=== PATIENT | male | born 1945 | race Caucasian/White ===

== ENCOUNTER 2020-01-17 16:19 | Inpatient (IN) | payer MEDICARE ==
[~2020-01-17] VITALS: Ht 190.5 cm; Wt 92.5 kg
[2020-01-17 16:54] LABS: BASOPHILS % (AUTO) 0.5 % (0.0-2.0); EOSINOPHILS % (AUTO) 3.3 % (0.0-6.0); HEMATOCRIT 44 % (39-51); HEMOGLOBIN 14.9 g/dL (13.5-17.5); LYMPHOCYTES # (AUTO) 0.5 /CMM (0.8-4.8); LYMPHOCYTES % (AUTO) 18.3 % (20.0-44.0); MEAN CORPUSCULAR HGB CONC 34 g/dl (31.0-36.0); MEAN CORPUSCULAR VOLUME 90 fL (80-96); MONOCYTES # (AUTO) 0.4 /CMM (0.1-1.30); MONOCYTES % (AUTO) 14.3 % (2.0-12.0); NEUTROPHILS # (AUTO) 1.7 /CMM (1.8-8.9); NEUTROPHILS % (AUTO) 63.6 % (43.0-81.0); PLATELET COUNT (AUTO) 116 /CMM (150-450); RED BLOOD CELL COUNT(AUTO) 4.95 MIL/uL (4.5-6.0); WHITE BLOOD COUNT (AUTO) 2.7 K/uL (4.3-11.0)
[2020-01-17 17:04] LABS: CALCIUM, SERUM 8.3 mg/dL (8.5-10.1); CREATININE 0.9 mg/dL (0.6-1.3); POTASSIUM 3.6 mmol/L (3.5-5.1)
[2020-01-17] MEDS ORDERED: AZAT50TA18 PO (17:30)
[2020-01-17] MEDS ORDERED: VITA400C19 PO (17:30)
[2020-01-17] MEDS ORDERED: ASCO-352 PO (17:30)
[2020-01-17] MEDS ORDERED: MULT-659 PO (17:30)
[2020-01-17] MEDS ORDERED: IVIG IV (17:31)
[2020-01-17 17:49] LABS: EOSINOPHILS % (MANUAL) 2 % (0-4); LYMPHOCYTES % (MANUAL) 21 % (16-48); MONOCYTES % (MANUAL) 16 % (0-11.0); NEUTROPHILS % (MANUAL) 61 (42-76)
--- NOTE | 2020-01-17 18:00 | NUR ---
CALLED [facility] DR. ROBLES FOR [facility]TH[facility] CONSULT.
[2020-01-17] MEDS ORDERED: MAGNESIUM HYDROXIDE 30 ML UDC PO PRN (19:00)
[2020-01-17] MEDS ORDERED: Z GUARD REMEDY 2 OZ OINT TP PRN (19:00)
[2020-01-17] MEDS ORDERED: ONDANSETRON HCL/PF 4 MG/2 ML VIAL IVP PRN (19:00)
[2020-01-17] MEDS ORDERED: ACETAMINOPHEN 325 MG TABLET PO PRN (19:00)
[2020-01-17] MEDS ORDERED: MAG HYDROX/AL HYDROX/SIMETH 30 ML UDC PO PRN (19:00)
--- NOTE | 2020-01-17 19:17 | NUR ---
LINE STARTED ON R WRIST G20,
--- NOTE | 2020-01-17 19:37 | NUR ---
PATIENT IS AAOX4. NO SOB. BREATHING EVENLY AND UNLABORED ON ROOM AIR. PATIENT C/O OF PAIN WHEN MOVING ON THE RIGHT SIDE (MAINLY HIP). OTHERWISE, PATIENT DENIES PAIN WHEN NOT MOVING. CONNECTED TO MONITOR. AWAITING ADMISSION.
--- NOTE | 2020-01-17 20:25 | NUR ---
CALLED FOR REPORT, STAFF STATES THAT "PATIENT HAS NOT BEEN ASSIGNED TO A NURSE YET".
--- NOTE | 2020-01-17 20:35 | NUR ---
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 X-RAY OF LEFT 4TH FINGER-NON DISPLACED INTRAARTICULAR IMPACTION FRACTURE OF THE BASE OF THE MIDDLE PHAL[place]X.HE WAS SEEN BY IN ER AND MED RECON DONE, HE WILL BE REFERRED TO ([facility]TH[facility]) HE MIGHT BE SEEN TOMORROW PER ENDORSEMENT. Addendum: 01/18/20 at 0253 by AIDAN NICKERSON RN WRONG ENTRY OF TIME: SUPPOSE TO BE 2040 NOT 2034
--- NOTE | 2020-01-17 20:41 | NUR ---
REPORT GIVEN TO ALFREDA ROMO FOR FRANCISCO.
--- NOTE | 2020-01-17 20:55 | NUR ---
RN NOTES: PATIENT ARRIVED IN IN-3 AT 2049,DX;HIP FRACTURE S/P FALL (HE SAID HE TRIP ON THE [place]) HE SAID HE DID NOT HIT HIS HEAD, NO NAUSEA OR VOMITING, HE DID NOT HAVE LOSS OF CONSCIOUSNESS, HE DIDNT FEEL DIZZY OR HAVING BLURRED VISION PRIOR TO THE FALL. HE WAS ACCOMPANIED BY 2 ER STAFF, HE WAS BREATHING SPONTANEOUSLY IN RA, NO SOB OR RESPIRATORY DISTRESS NOTED, PATIENT IS A/0 3-4, COOPERATIVE AND CONVERSANT, ORIENTED TO UNIT AND STAFF, EXPLAINED TO HIM WE NEED TO DO SKIN ASSESSMENT, HE REFUSED TO BE TURNED AND REPOSITION DUE TO PAIN, HE DONT EVEN WANT TO REMOVE THE BED SHEET FROM THE ER, OFFERED ICE PACK HE SAID HE DONT WANT, HE SAID HE HAS SEVERE PAIN UPON MOVEMENT, BUT IF HE STAY IN ONE POSITION HE IS OK NO PAIN, BODY ASSESSMENT DONE: 1)RIGHT HAND ABRASION 2)RIGHT KNEE ABRASION 3) RIGHT HIP IS SWELLING BUT NO SKIN DISCOLORATION NOTED AT THIS TIME 4) LEFT 4TH FINGER- SWELLING AND SLIGHT REDNESS , HE HAD BM TODAY HE ONLY REQUEST TO USE URINAL, HE WANTS TO BE FC BUT NO INTUBATION, HE LIVES ALONE AND HE HAS CLOSE FRIEND AROUND HIM, HE IS SELF EMPLOYED. -FALL, SAFETY AND ASPIRATION PRECAUTION OBSERVED.KEPT CALL LIGHT WITHIN EASY REACH, ON CLOSE WATCH, HIGH RISK FOR FALL.
[2020-01-17 21:00] VITALS: BP 146/74
--- NOTE | 2020-01-17 22:00 | NUR ---
RN NOTES; OFFERED ICE PACK AND PAIN MEDICATION WHEN HE ARRIVED IN [facility] HE SAID HE WILL ASK FOR IT, THEN RN OFFERED AGAIN AT 2202 HE AGREED TO TAKE IT BECAUSE HE WONT EVEN ALLOWED TO BE REPOSITION TO REMOVE THE SHEET. HE ONLY WANT THE TABLET, NORCO GIVEN, NON PHARMACOLOGIC INTERVENTION RENDERED, WARM BLANKET AND POSITIONING, ALL CALLS AND NEEDS ATTENDED.
[2020-01-17] MEDS: HYDROCODONE/APAP 5/325MG 1 EACH TABLET PO PRN (22:02)
[2020-01-17] MEDS: IV NS 0.9% 1,000 ML IV PRN (22:02)
--- NOTE | 2020-01-18 03:01 | NUR ---
RN NOTES: ABLE TO SLEEP AND REST, KEPT ON CLOSE VISUAL CHECK.
[2020-01-18] MEDS: HYDROCODONE/APAP 5/325MG 1 EACH TABLET PO PRN (03:10)
--- NOTE | 2020-01-18 03:11 | NUR ---
RN NOTES: RN DID ROUNDS AND HE WAKE UP AND SAID HIS TRYING TO MOVE AND HE JUST PEE AWHILE AGO HE FELT PAIN 04/10, I OFFERED TO HIM HIS INJECTION FOR PAIN BUT HE SAID "I PREFER THE TABLET ONLY", NORCO GIVEN PER REQUEST AND WARM BLANKET GIVEN. KEPT CALL LIGHT WITHIN EASY REACH.
--- NOTE | 2020-01-18 06:47 | NUR ---
RN NOTES: ON NPO, CONTINENT BOTH BOWEL AND BLADDER, URINE OUT YWP=[id number], NO BM, IV CANNULA ON THE RIGHT HAND G#20 INTACT WITH IVF ON NS AT 75 ML/HR ONGOING, FOR LABS TODAY, FOR ORTHO REFERRAL, ENDORSED FOR CONTINUITY OF CARE.STILL WITH INTERMITTENT [PAIN ON THE RIGHT HIP.
[2020-01-18 08:00] VITALS: BP 143/93
--- NOTE | 2020-01-18 08:40 | NUR ---
RN Notes: Received pt. awake in bed, with an IV of NS 1L at 75 cc/hr dripping well. Pt. was on the phone, responsive to staffs, no pain reported at this time, pt on NPO. Needs attended and safety precautions in place. Bed locked and set to lowest position with side rails x 2 up. Call light within reach. Will continue to monitor.
[2020-01-18] MEDS: ASCORBIC ACID 500 MG TABLET PO SCH ×2 (09:00→09:33)
[2020-01-18] MEDS: AZATHIOPRINE 50 MG TABLET PO SCH ×3 (09:00→10:19)
[2020-01-18] MEDS: MULTIVIT W/MINERALS 1 TAB TABLET PO SCH ×2 (09:00→09:33)
[2020-01-18] MEDS: VITAMIN E 400 UNIT CAPSULE PO SCH ×2 (09:00→09:33)
[2020-01-18 09:08] LABS: BASOPHILS % (AUTO) 0.2 % (0.0-2.0); EOSINOPHILS % (AUTO) 0.9 % (0.0-6.0); HEMATOCRIT 45 % (39-51); HEMOGLOBIN 15.3 g/dL (13.5-17.5); LYMPHOCYTES # (AUTO) 0.3 /CMM (0.8-4.8); LYMPHOCYTES % (AUTO) 7.6 % (20.0-44.0); MEAN CORPUSCULAR HGB CONC 34 g/dl (31.0-36.0); MEAN CORPUSCULAR VOLUME 89 fL (80-96); MONOCYTES # (AUTO) 0.4 /CMM (0.1-1.30); MONOCYTES % (AUTO) 9.4 % (2.0-12.0); NEUTROPHILS # (AUTO) 3.3 /CMM (1.8-8.9); NEUTROPHILS % (AUTO) 81.9 % (43.0-81.0); PLATELET COUNT (AUTO) 120 /CMM (150-450); RED BLOOD CELL COUNT(AUTO) 5.07 MIL/uL (4.5-6.0); WHITE BLOOD COUNT (AUTO) 4.1 K/uL (4.3-11.0)
[2020-01-18 09:13] LABS: CALCIUM, SERUM 8.3 mg/dL (8.5-10.1); CREATININE 0.8 mg/dL (0.6-1.3); MAGNESIUM 2.1 mg/dL (1.8-2.4); PHOSPHORUS 3.1 mg/dL (2.5-4.9); POTASSIUM 3.7 mmol/L (3.5-5.1)
[2020-01-18 09:22] LABS: THYROID STIMULATING HORMONE 4.853 uIU/mL (0.358-3.74)
--- NOTE | 2020-01-18 09:32 | NUR ---
Clarified with Ascecnion Chen (MANAGER NEONATAL), pt. on NPO except meds.
[2020-01-18 11:41] VITALS: BP 140/73
--- NOTE | 2020-01-18 12:08 | NUR ---
Notified Ascencion April that BP 143/93 and NM 134 as of 0800 and the latest BP 140/73 and NM 140. Pt. is on pain 07/11 and said he doesn't want prn med for pain and will wait for the ortho doctor. No new order.
--- NOTE | 2020-01-18 13:59 | NUR ---
Ascencion Chen gave an order to pt. OK to eat today and NPO after midnight for surgery tomorrow.
[2020-01-18 16:00] VITALS: BP 132/76
--- NOTE | 2020-01-18 18:56 | NUR ---
RN Closing Notes: Pt. is awake in bed, with ongoing IV of NS 1L at 75 ml/hr. Pt. is waiting for the orthopedic doctor. Pt. refused to eat dinner. No distress noted and will endorse to the incoming nurse for the continuity of care.
--- NOTE | 2020-01-18 19:35 | NUR ---
MS RN OPENING NOTES PATIENT AWAKE IN BED. A/OX4. ON RA. NO S/S OF ACUTE RESPIRATORY DISTRESS AND NO C/O PAIN AT THIS TIME. IV PRESENT ON RIGHT WRIST, SIZE 20, INTACT & PATENT, WITH NS RUNNING AT 75 ML/HR. EXPLAINED TO PATIENT THAT HE WILL BE NPO AFTER MIDNIGHT R/T SURGERY TOMORROW MORNING; VERBALIZED UNDERSTANDING. SAFETY MEASURES IN PLACE. BED LOCKED, SIDE RAILS X2, CALL LIGHT WITHIN REACH. WILL CONTINUE TO MONITOR.
[2020-01-18 20:00] VITALS: BP 150/82
[2020-01-18] MEDS: IV NS 0.9% 1,000 ML IV PRN (20:41)
[2020-01-18] MEDS: MORPHINE SULFATE INJ 2 MG/ML DISP.SYRIN IV PRN (21:05)
[2020-01-19 06:44] LABS: BASOPHILS # (AUTO) 0.1 /CMM (0.0-0.2); BASOPHILS % (AUTO) 1.8 % (0.0-2.0); EOSINOPHILS % (AUTO) 4.3 % (0.0-6.0); HEMATOCRIT 46 % (39-51); HEMOGLOBIN 15.3 g/dL (13.5-17.5); LYMPHOCYTES # (AUTO) 0.4 /CMM (0.8-4.8); LYMPHOCYTES % (AUTO) 8.4 % (20.0-44.0); MEAN CORPUSCULAR HGB CONC 34 g/dl (31.0-36.0); MEAN CORPUSCULAR VOLUME 89 fL (80-96); MONOCYTES # (AUTO) 0.5 /CMM (0.1-1.30); MONOCYTES % (AUTO) 11.1 % (2.0-12.0); NEUTROPHILS # (AUTO) 3.3 /CMM (1.8-8.9); NEUTROPHILS % (AUTO) 74.4 % (43.0-81.0); PLATELET COUNT (AUTO) 118 /CMM (150-450); RED BLOOD CELL COUNT(AUTO) 5.14 MIL/uL (4.5-6.0); WHITE BLOOD COUNT (AUTO) 4.4 K/uL (4.3-11.0)
[2020-01-19 07:10] LABS: CALCIUM, SERUM 8.4 mg/dL (8.5-10.1); CREATININE 0.9 mg/dL (0.6-1.3); POTASSIUM 3.4 mmol/L (3.5-5.1)
--- NOTE | 2020-01-19 07:20 | NUR ---
MS RN CLOSING NOTES PATIENT AWAKE IN BED. A/OX4. ON RA. NO S/S OF ACUTE RESPIRATORY DISTRESS AND NO C/O PAIN AT THIS TIME. IV PRESENT ON RIGHT WRIST, SIZE 20, INTACT & PATENT, WITH NS RUNNING AT 75 ML/HR. PATIENT HAS BEEN NPO SINCE MIDNIGHT. CONSENTS FOR SURGERY SIGNED AND PLACED IN CHART. SAFETY MEASURES IN PLACE. BED LOCKED, SIDE RAILS X2, CALL LIGHT WITHIN REACH. WILL ENDORSE TO DAY SHIFT NURSE PLAN OF CARE.
--- NOTE | 2020-01-19 07:35 | NUR ---
RN NOTES RECEIVED PATIENT AWAKE IN BED. A/OX4. ON RA. NO S/S OF ACUTE RESPIRATORY DISTRESS AND NO C/O PAIN AT THIS TIME. IV PRESENT ON RIGHT WRIST, SIZE 20, INTACT & PATENT, WITH NS RUNNING AT 75 ML/HR. PATIENT HAS BEEN NPO SINCE MIDNIGHT. CONSENTS FOR SURGERY SIGNED AND PLACED IN CHART, SCHEDULED FOR SURGERY @09:00. SAFETY MEASURES IN PLACE. BED LOCKED, SIDE RAILS X2, CALL LIGHT WITHIN REACH. WILL CONTINUE TO MONITOR.
[2020-01-19 08:00] VITALS: BP 153/78
[2020-01-19] MEDS ORDERED: ANESTHESIA TRAY IN PYXIS 1 EA TRAY MC ONE (08:14)
[2020-01-19] MEDS ORDERED: BACITRACIN 50000 UNITS/VIAL ONE (08:15)
[2020-01-19] MEDS ORDERED: BUPIVACAINE 0.5 % PF 150 MG/30 ML VIAL ONE (08:15)
[2020-01-19] MEDS ORDERED: POTASSIUM CL. PREMIX PERIPHER. 50 ML IV SCH (08:30)
--- NOTE | 2020-01-19 08:45 | NUR ---
RN NOTES PATIENT WAS PICKED UP VIA HOSPITAL BED FOR SURGERY WITH DR. ROBLES, NO SIGNS OF DISTRESS, CONSENT SIGNED, ENDORSE TO DEMETRIUS HANKS FOR FRANCISCO.
--- NOTE | 2020-01-19 08:50 | NUR ---
M/S RN NOTES REPORT ENDORSED BY JAVED ROMO. PT IN SURGERY AT THIS TIME. ELLIS ON THE FLOOR, PER PROVIDER TO ADJUST POTASSIUM SUPPLEMENTS TIME ONCE RETURN ON THE FLOOR FOR ADMINISTRATION. NOTED AND CARRIED OUT
[2020-01-19] MEDS: ASCORBIC ACID 500 MG TABLET PO SCH (09:00)
[2020-01-19] MEDS: MULTIVIT W/MINERALS 1 TAB TABLET PO SCH (09:00)
[2020-01-19] MEDS: AZATHIOPRINE 50 MG TABLET PO SCH (09:00)
[2020-01-19] MEDS: VITAMIN E 400 UNIT CAPSULE PO SCH (09:00)
[2020-01-19] MEDS ORDERED: MIDAZOLAM HCL 2 MG/2ML VIAL ONE (09:44)
[2020-01-19] MEDS ORDERED: FENTANYL PF 100MCG/2ML AMPUL ONE (09:44)
[2020-01-19] MEDS ORDERED: TRANEXAMIC ACID 3,000 MG in SODIUM CHLORIDE IRRIG SOLUTION 70 ML IR ONE (10:00)
[2020-01-19] MEDS ORDERED: PROPOFOL 100 ML ONE (10:26)
[2020-01-19] MEDS ORDERED: ALBUMIN 5% 250 ML IV ONE (11:06)
--- NOTE | 2020-01-19 13:00 | NUR ---
M/S RN NOTES PT RECEIVED FROM SURGERY S/P RIGHT HIP YASMIN ARTHROPLASTY. A/OX4, RESPONSIVE TO ALL STIMULI. AND SOFT AND NON DISTENDED WITH ACTIVE BOWEL SOUNDS. DENIES PAIN AT THIS TIME. IV SITE AT RIGHT WRIST #20 PATENT IN FLUSHING, WITH NS AT 75 ML/ HR. PLACED ON REGULAR DIET BY THE PROVIDER. VS 153/85, 89, 18, 98 F, 94% ROOM AIR. WITH ORDER TO CHECK O2 EVERY HOUR. BED IN LOW LOCKED POSITION, SR X2 UP FOR SAFETY. SCD COMPRESSION IN PLACE. CALL LIGHT WITHIN REACH. WILL CONTINUE TO MONITOR CARE.
--- NOTE | 2020-01-19 15:15 | NUR ---
M/S RN NOTES VERIFIED WITH SVEN ELLIS REGARDING KCL 4 BAGS IV REPLACEMENT FOR 3.4 LEVEL RESULT TODAY. NEW ORDER OBTAINED OF K-DUR 20 MEQ 1 TAB NOW FOR REPLACEMENT. ORDER READ BACK BY GIANNA CHARGE NURSE RN, NOTED AND CARRIED OUT.TO ADMINISTER ORDERED
[2020-01-19 16:00] VITALS: BP 158/78
[2020-01-19] MEDS ORDERED: ZOLPIDEM TARTRATE 10 MG TABLET PO PRN (16:00)
[2020-01-19] MEDS ORDERED: POTASSIUM CHLORIDE 20 MEQ TAB.PRT.SR PO ONE (17:00)
[2020-01-19] MEDS: ANCEF 1 GM/50 ML D5W IV SCH ×2 (17:36)
--- NOTE | 2020-01-19 18:00 | NUR ---
M/S RN NOTES PT TAKING MELATONIN LIQUID 10 ML QHS PRN FOR INSOMNIA HOME MEDS, ADDED PER SVEN ELLIS AND APPROVED BY DR. ROBLES. ORDER PLACED IN FOR USE. PT NOTIFIED
[2020-01-19] MEDS: MORPHINE SULFATE INJ 2 MG/ML DISP.SYRIN IV PRN (18:15)
[2020-01-19] MEDS: IV NS 0.9% 1,000 ML IV PRN (18:28)
--- NOTE | 2020-01-19 19:50 | NUR ---
MS RN OPENING NOTES PATIENT AWAKE IN BED. A/OX4. ON RA. NO S/S OF ACUTE RESPIRATORY DISTRESS AND NO C/O PAIN AT THIS TIME. IV PRESENT ON RIGHT WRIST, SIZE 20, INTACT & PATENT, WITH NS RUNNING AT 75 ML/HR. SURGICAL DRESSING ON RIGHT HIP DRY AND INTACT. SCD PRESENT ON LEFT CALF. SAFETY MEASURES IN PLACE. BED LOCKED, SIDE RAILS X2, CALL LIGHT WITHIN REACH. WILL CONTINUE TO MONITOR.
[2020-01-19 20:06] VITALS: BP 154/93
[2020-01-19 20:15] VITALS: BP 154/93
--- NOTE | 2020-01-19 20:20 | NUR ---
M/S RN CLOSING NOTES PT A/OX4, RESPIRATION NOT IN ACUTE RESPIRATORY DISTRESS, ROOM AIR SATURATION 90-96%. ABD SOFT AND NON DISTENDED WITH ACTIVE BOWEL SOUNDS, FC INTACT WITH YELLOW OUTPUT, PT COMPLAIN OF DISCOMFORT AT PENILE AREA AND AWARE OF THE SIDE EFFECT OF FC, STATED TOLERABLE. PAIN MEDICATION PROVIDED MORPHINE EFFECTIVE, SKIN WARM TO TOUCH AND DRY. IV SITE AT RIGHT HAND PATENT IN FLUSHING, NO S/SX OF INFILTRATION RUNNING NS AT 75 ML/HR. ALL CONCERNS ATTENDED. BED IN LOW LOCKED POSITION, SR X2 UP FOR SAFETY, SCD ON AND TOLERATING WELL. CALL LIGHT WITHIN REACH. ENDORSED CARE TO NEXT PT
[2020-01-19] MEDS: MELATONIN PO SCH (22:48)
--- NOTE | 2020-01-19 23:20 | NUR ---
MS RN NOTES PATIENT C/O OF BURNING SENSATION WHEN URINATING THROUGH ROBERSON CATHETER. ROBERSON CATH BALLOON AND TUBING ASSESSED AND REPOSITIONED. PATIENT CONTINUED C/O PAIN. NOTIFIED RECREATION CENTER DIRECTOR LUPE MONSIVAIS. RECEIVED ORDER TO REMOVE ROBERSON CATHETER. ROBERSON REMOVED AT 5208.
--- NOTE | 2020-01-19 23:35 | NUR ---
MS RN NOTES PATIENT'S TEMP 100.1. GAVE PRN TYLENOL 650 MG PO. WILL CONTINUE TO MONITOR.
[2020-01-20] MEDS: ANCEF 1 GM/50 ML D5W IV SCH ×4 (01:07→09:56)
[2020-01-20 01:40] VITALS: BP 137/81
[2020-01-20] MEDS: MORPHINE SULFATE INJ 2 MG/ML DISP.SYRIN IV PRN ×2 (01:40→21:04)
--- NOTE | 2020-01-20 01:40 | NUR ---
MS RN NOTES PATIENT C/O OF RIGHT HIP PAIN RATED 10/10. PER PATIENT'S REQUEST ADMINISTERED PRN MORPHINE 2MG VIA IV. VITAL SIGNS - BP: 137/81 HR:86 RR:18 SPO2: 95. CALL LIGHT WITHIN REACH. WILL CONTINUE TO MONITOR.
--- NOTE | 2020-01-20 01:45 | NUR ---
MS RN NOTES PATIENT'S TEMP 98.4.
--- NOTE | 2020-01-20 07:30 | NUR ---
MS/RN Opening Note Received Patient OA X 4, confusing able to responds all stimuli. No c/o pain or any discomfort at this time, skin is warm to touch, kept clean/dry, intact IV site and running NS at 75 ml. Respiratory even and unlabored with room air. Keep remain lower position of the bed with locked wheel chair for safety. Call light within reach, will continue to monitor.
--- NOTE | 2020-01-20 07:33 | NUR ---
MS RN CLOSING NOTES PATIENT AWAKE IN BED. A/OX4. ON RA. NO S/S OF ACUTE RESPIRATORY DISTRESS AND NO C/O PAIN AT THIS TIME. IV PRESENT ON RIGHT WRIST, SIZE 20, INTACT & PATENT, WITH NS RUNNING AT 75 ML/HR. SURGICAL DRESSING ON RIGHT HIP DRY AND INTACT. SCD PRESENT ON LEFT CALF. SAFETY MEASURES IN PLACE. BED LOCKED, SIDE RAILS X2, CALL LIGHT WITHIN REACH. WILL ENDORSE TO DAY SHIFT NURSE PLAN OF CARE. .
[2020-01-20 07:34] LABS: BASOPHILS % (AUTO) 0.2 % (0.0-2.0); EOSINOPHILS % (AUTO) 1.6 % (0.0-6.0); HEMATOCRIT 43 % (39-51); HEMOGLOBIN 14.6 g/dL (13.5-17.5); LYMPHOCYTES # (AUTO) 0.3 /CMM (0.8-4.8); LYMPHOCYTES % (AUTO) 4.6 % (20.0-44.0); MEAN CORPUSCULAR HGB CONC 34 g/dl (31.0-36.0); MEAN CORPUSCULAR VOLUME 88 fL (80-96); MONOCYTES # (AUTO) 0.6 /CMM (0.1-1.30); MONOCYTES % (AUTO) 10.3 % (2.0-12.0); NEUTROPHILS % (AUTO) 83.3 % (43.0-81.0); PLATELET COUNT (AUTO) 107 /CMM (150-450); RED BLOOD CELL COUNT(AUTO) 4.86 MIL/uL (4.5-6.0)
[2020-01-20 07:57] LABS: BILIRUBIN,TOTAL 0.7 mg/dL (0.2-1.0); CALCIUM, SERUM 8.2 mg/dL (8.5-10.1); CREATININE 0.8 mg/dL (0.6-1.3); PHOSPHORUS 2.9 mg/dL (2.5-4.9); POTASSIUM 3.4 mmol/L (3.5-5.1); TOTAL PROTEIN, SERUM 7.4 g/dL (6.4-8.2)
[2020-01-20 08:00] VITALS: BP 147/94
[2020-01-20] MEDS: VITAMIN E 400 UNIT CAPSULE PO SCH (09:48)
[2020-01-20] MEDS: MULTIVIT W/MINERALS 1 TAB TABLET PO SCH (09:48)
[2020-01-20] MEDS: ASCORBIC ACID 500 MG TABLET PO SCH (09:49)
[2020-01-20] MEDS: ENOXAPARIN SODIUM 40 MG/0.4 ML DISP.SYRIN SQ SCH (09:52)
[2020-01-20] MEDS: HYDROCODONE/APAP 5/325MG 1 EACH TABLET PO PRN (09:56)
[2020-01-20] MEDS ORDERED: POTASSIUM CHLORIDE 20 MEQ TAB.PRT.SR PO SCH (10:00)
[2020-01-20] MEDS: AZATHIOPRINE 50 MG TABLET PO SCH (10:14)
[2020-01-20 16:00] VITALS: BP 157/85
--- NOTE | 2020-01-20 18:30 | NUR ---
MS/RN Closing Note Patient in bed, does no c/o pain or any discomfort. skin is warm to touch, kept clean/dry, intact IV site. Respiratory even and unlabored with room air. Kept lower position of the bed with locked wheel and elevated head of bed. Call light within reach, will endorse night clerk auditor.
--- NOTE | 2020-01-20 19:59 | NUR ---
MS RN CLOSING NOTES PT REMAINS IN BED, AWAKE, A/O X4. PT TOLERATING RA, WITH NO ACUTE RESPIRATORY DISTRESS NOTED. PT DENIES ANY PAIN OR DISCOMFORT AT THIS TIME.IV ACCESS INTACT AND PATENT, G20, NO INFILTRATION NOTED. PT KEPT COMFORTABLE IN BED. SAFETY MEASURES IN PLACE. ALL NEEDS AND CARE ATTENDED. CALL LIGHT KEPT WITHIN REACH. PT'S BED IN LOWEST, LOCKED POSITION WITH SRX3. WILL CONTINUE TO MONITOR ACCORDINGLY. Addendum: 01/21/20 at 0020 [place] [address]/20/20 PT REMAINS IN BED, AWAKE, A/O X4. PT TOLERATING RA, WITH NO ACUTE RESPIRATORY DISTRESS NOTED. PT DENIES ANY PAIN OR DISCOMFORT AT THIS TIME. IVF NS AT TKO RAC G20, INTACT AND NO INFILTRATION NOTED. PT KEPT COMFORTABLE IN BED. ALL NEEDS AND CARE ATTENDED. CALL LIGHT KEPT WITHIN REACH. PT'S BED IN LOWEST, LOCKED POSITION WITH SRX3. WILL ENDORSE TO INCOMING NIGHT NURSE FOR FRANCISCO.
[2020-01-20 20:00] VITALS: BP 120/75
[2020-01-20 20:56] VITALS: BP 120/75
[2020-01-20] MEDS: MELATONIN PO SCH (22:29)
--- NOTE | 2020-01-20 23:50 | NUR ---
RN NOTES ROBERSON CATHETER HAS BEEN D/C'D ON 01/19/20 AT 2320 PER NURSES' PREVIOUS REPORT.
--- NOTE | 2020-01-21 06:50 | NUR ---
RN NOTES ALL NEEDS ATTENDED AND MET, ABLE TO REST AND SLEPT AT INTERVALS, SAFETY MEASURES IN PLACE, WILL ENDORSE TO AM NURSE FOR CONTINUITY ON CARE.
--- NOTE | 2020-01-21 07:33 | NUR ---
MS RN OPENING NOTE PATIENT IN BED RESTING COMFORTABLY. PATIENT IN NO ACUTE DISTRESS. NO SOB NOTED. PATIENT BREATHING IS EVEN AND UNLABORED. PATIENT IN NO PAIN AT THIS TIME. NO FACIAL GRIMACING NOTED. PATIENT BED ALARM IS ON. SAFETY PRECAUTIONS IN PLACE. PATIENT BED IS LOCKED AND IN LOWEST POSITION. CALL LIGHT WITHIN REACH. WILL CONTINUE TO MONITOR.
[2020-01-21 08:00] VITALS: BP 124/68
--- NOTE | 2020-01-21 08:19 | NUR ---
MS RN NOTE DR. BAKER SEEN AND EVALUATED PATIENT. SPOKE WITH DR. BAKER , PER MD ORDER FOR AMBIEN 5MG AT NIGHT BEFORE SLEEP PRN.
[2020-01-21] MEDS ORDERED: ZOLPIDEM TARTRATE 5 MG TABLET PO PRN (08:30)
[2020-01-21 08:40] LABS: CALCIUM, SERUM 8.3 mg/dL (8.5-10.1); CREATININE 0.8 mg/dL (0.6-1.3); POTASSIUM 3.5 mmol/L (3.5-5.1)
[2020-01-21] MEDS: VITAMIN E 400 UNIT CAPSULE PO SCH (08:46)
[2020-01-21] MEDS: AZATHIOPRINE 50 MG TABLET PO SCH (08:47)
[2020-01-21] MEDS: MULTIVIT W/MINERALS 1 TAB TABLET PO SCH (08:47)
[2020-01-21] MEDS: ASCORBIC ACID 500 MG TABLET PO SCH (08:47)
[2020-01-21] MEDS: ENOXAPARIN SODIUM 40 MG/0.4 ML DISP.SYRIN SQ SCH (08:48)
[2020-01-21] MEDS: POTASSIUM CHLORIDE 20 MEQ TAB.PRT.SR PO SCH ×2 (10:52→11:43)
[2020-01-21] MEDS: IV NS 0.9% 1,000 ML IV SCH ×2 (10:52→17:01)
[2020-01-21 11:05] LABS: LYMPHOCYTES # (AUTO) 0.4 /CMM (0.8-4.8); MONOCYTES # (AUTO) 0.8 /CMM (0.1-1.30); NEUTROPHILS % (AUTO) 80.9 % (43.0-81.0); PLATELET COUNT (AUTO) 119 /CMM (150-450)
[2020-01-21 11:33] LABS: BASOPHILS % (AUTO) 0.5 % (0.0-2.0); EOSINOPHILS % (AUTO) 1.1 % (0.0-6.0); HEMATOCRIT 43 % (39-51); HEMOGLOBIN 14.2 g/dL (13.5-17.5); LYMPHOCYTES % (AUTO) 6.2 % (20.0-44.0); MEAN CORPUSCULAR HGB CONC 34 g/dl (31.0-36.0); MEAN CORPUSCULAR VOLUME 88 fL (80-96); MONOCYTES % (AUTO) 11.3 % (2.0-12.0); NEUTROPHILS # (AUTO) 5.7 /CMM (1.8-8.9); RED BLOOD CELL COUNT(AUTO) 4.84 MIL/uL (4.5-6.0)
[2020-01-21] MEDS: HYDROCODONE/APAP 5/325MG 1 EACH TABLET PO PRN (13:20)
[2020-01-21 16:00] VITALS: BP 114/69
--- NOTE | 2020-01-21 19:23 | NUR ---
MS RN CLOSING NOTE PATIENT IN BED RESTING COMFORTABLY. PATIENT IN NO ACUTE DISTRESS. NO SOB NOTED. PATIENT BREATHING IS EVEN AND UNLABORED. PATIENT STATES NO PAIN AT THIS TIME. NO FACIAL GRIMACING NOTED. PATIENT BED ALARM IS ON. SAFETY PRECAUTIONS IN PLACE. PATIENT KEPT CLEAN, DRY, AND COMFORTABLE THROUGHOUT SHIFT. NEEDS AND CONCERNS ADDRESSED. PATIENT BED IS LOCKED AND IN LOWEST POSITION. CALL LIGHT WITHIN REACH. WILL ENDORSE CARE TO PM SHIFT FOR FRANCISCO.
--- NOTE | 2020-01-21 19:55 | NUR ---
MS RN NOTES RECEIVED PATIENT IN BED RESTING COMFORTABLY. PATIENT IN NO ACUTE DISTRESS. NO SOB NOTED. PATIENT BREATHING IS EVEN AND UNLABORED. PATIENT DENIES PAIN AT THIS TIME. NO FACIAL GRIMACING NOTED. PATIENT BED ALARM IS ON. SAFETY PRECAUTIONS IN PLACE. PATIENT BED IS LOCKED AND IN LOWEST POSITION. CALL LIGHT WITHIN REACH. ASPIRATION PRECAUTION EMPHASIZED, IV ACCESS INTACT AND PATENT, NO SIGNS OF INFILTRATION NOTED AT THIS TIME.WILL CONTINUE TO MONITOR ACCORDINGLY.
[2020-01-21 20:07] VITALS: BP 127/73
[2020-01-21 20:36] VITALS: BP 127/73
[2020-01-21] MEDS: MELATONIN PO SCH (22:00)
--- NOTE | 2020-01-22 06:37 | NUR ---
RN NOTES ALL NEEDS ATTENDED AND MET. PATIENT IN BED RESTING COMFORTABLY. PATIENT IN NO ACUTE DISTRESS. NO SOB NOTED. PATIENT BREATHING IS EVEN AND UNLABORED. PATIENT STATES NO PAIN AT THIS TIME. NO FACIAL GRIMACING NOTED. PATIENT BED ALARM IS ON. SAFETY PRECAUTIONS IN PLACE. PATIENT KEPT CLEAN, DRY, AND COMFORTABLE THROUGHOUT SHIFT. PATIENT BED IS LOCKED AND IN LOWEST POSITION. CALL LIGHT WITHIN REACH. WILL ENDORSE TO AM NURSE FOR CONTINUITY OF CARE.
[2020-01-22 06:56] LABS: BASOPHILS % (AUTO) 0.4 % (0.0-2.0); EOSINOPHILS % (AUTO) 4.3 % (0.0-6.0); HEMATOCRIT 38 % (39-51); LYMPHOCYTES # (AUTO) 0.5 /CMM (0.8-4.8); LYMPHOCYTES % (AUTO) 8.4 % (20.0-44.0); MEAN CORPUSCULAR HGB CONC 34 g/dl (31.0-36.0); MEAN CORPUSCULAR VOLUME 88 fL (80-96); MONOCYTES # (AUTO) 0.5 /CMM (0.1-1.30); NEUTROPHILS # (AUTO) 4.1 /CMM (1.8-8.9); NEUTROPHILS % (AUTO) 76.9 % (43.0-81.0); PLATELET COUNT (AUTO) 126 /CMM (150-450); RED BLOOD CELL COUNT(AUTO) 4.35 MIL/uL (4.5-6.0); WHITE BLOOD COUNT (AUTO) 5.4 K/uL (4.3-11.0)
[2020-01-22 07:02] LABS: CALCIUM, SERUM 7.9 mg/dL (8.5-10.1); CREATININE 0.7 mg/dL (0.6-1.3); POTASSIUM 3.5 mmol/L (3.5-5.1)
[2020-01-22] MEDS ORDERED: ENOX40DI SQ (07:37)
[2020-01-22 08:00] VITALS: BP 125/77
--- NOTE | 2020-01-22 08:17 | NUR ---
MS RN OPENING NOTES RECEIVED PATIENT IN BED, AWAKE, A/O X4. PATIENT ON ROOM AIR BREATHING EVENLY AND WITH NO DISTRESS AT THIS TIME. NO COMPLAINS OF PAIN AT THIS MOMENT. R HAND G # 20 INTACT AND FLUSHING WELL. SAFETY PRECAUTIONS IN PLACE; BED IN LOW POSITION AND LOCKED, RAILS UP X2, CALL LIGHT WITHIN REACH. WILL CONTINUE TO MONITOR PATIENT.
[2020-01-22] MEDS: AZATHIOPRINE 50 MG TABLET PO SCH (08:47)
[2020-01-22] MEDS: MULTIVIT W/MINERALS 1 TAB TABLET PO SCH (08:47)
[2020-01-22] MEDS: ASCORBIC ACID 500 MG TABLET PO SCH (08:47)
[2020-01-22] MEDS: VITAMIN E 400 UNIT CAPSULE PO SCH (08:47)
[2020-01-22] MEDS: ENOXAPARIN SODIUM 40 MG/0.4 ML DISP.SYRIN SQ SCH (08:50)
[2020-01-22] MEDS: HYDROCODONE/APAP 5/325MG 1 EACH TABLET PO PRN (13:32)
--- NOTE | 2020-01-22 19:04 | NUR ---
MS ACQUISITION MARKETING COORDINATOR NOTES PATIENT DISCHARGED TO SNF IN MEDICALLY STABLE CONDITION. PATIENT A/O X4. VS WNL. AT THE TIME OF DISCHARGE NO PAIN REPORTED BY PATIENT. ALL DISCHARGE PAPERWORK DONE AND SIGNED BY PATIENT. TEACHING PROVIDED; PATIENT VERBALIZED UNDERSTANDING. VALUABLES ACCOUNTED FOR AND VALUABLE FORM SIGNED. PICTURES TAKEN AND FILED. CALLED SNF AND GAVE REPORT TO FLORENCIO. PATIENT LEFT THE FLOOR ACCOMPANIED BY 2 COMPUTER SYSTEMS ARCHITECT.
== END 2020-01-22 17:55 | DRG 470 ==
LOC: ER 16:22 → MED 20:16
PROVIDERS: ADMIT Nurse Practitioner Acute Care; ATTEND Family Medicine
PROC: 0SRR0JZ Replacement of Right Hip Joint, Femoral Surface with Synthetic Substitute, Open Approach (ICD-10-PCS; principal; 2020-01-19)
DX: S72.011A Unspecified intracapsular fracture of right femur, initial encounter for closed fracture (principal); W01.0XXA Fall on same level from slipping, tripping and stumbling without subsequent striking against object, initial encounter; Y93.89 Activity, other specified; G70.00 Myasthenia gravis without (acute) exacerbation; D69.6 Thrombocytopenia, unspecified; E86.0 Dehydration; E87.6 Hypokalemia; I10 Essential (primary) hypertension; D72.819 Decreased white blood cell count, unspecified; S62.663A Nondisplaced fracture of distal phalanx of left middle finger, initial encounter for closed fracture; Y92.481 Parking lot as the place of occurrence of the external cause
CPT/HCPCS: 36415; 71045-TC; 73140-TC; 73501; 73502; 80048-TC; 80053-TC; 80061-TC; 83735-TC; 84100-TC; 84443-TC; 85025-TC; 85730-TC; 86850-TC; 87081-TC; 88305-TC; 88311-TC; 93307-TC; 97110-TC; 97112-TC; 97116-TC; 97530-TC; A4217; A6209; C1776; G0378; J0690; J1650; J2250; J2270; J2405; J3010; J3490; J7030; J7060; J7500; P9045